=== PATIENT | female | born 1955 | race Hispanic/Latino ===

== ENCOUNTER 2018-09-01 12:46 | Outpatient (CLI) | payer OTHER ==
--- NOTE | 2018-09-01 14:21 | BD ---
DEXA BONE DENSITOMETRY: (Dual energy X-ray Absorptiometry) DATE: 09/01/2018. HISTORY: A 62-year-old white female for age-related postmenopausal osteoporosis screening. Height 62 inches. Weight 174 pounds. Age of menopause 40 years. COMPARISON: None available. FINDINGS: The bone mineral density (BMD) is given in grams per square centimeter (g/cm2): LUMBAR SPINE: BMD(g/cm2) T-score Z-score L1: 0.806 -1.7 -0.3 L2: 0.891 -1.2 0.3 L3: 0.913 -1.6 0.1 L4: 0.892 -1.5 0.2 Total: 0.878 -1.5 0.1 HIP: Femoral neck: 0.771 -0.7 0.7 Total: 0.999 0.5 1.6 FRAX WHO Fracture Risk Assessment Tool: 10 Year Fracture Risk * Major osteoporotic fracture: 6.9%. Hip fracture: 0.3%. Reported Risk Factors: [place](), Neck BMD=0.771), BMI=31.8. * Fracture probability is calculated for an untreated patient. Fracture probability may be lower if the patient has received treatment. IMPRESSION: 1) The mean bone mineral density of the lumbar spine is osteopenic. Fracture risk is increased. 2) The bone mineral density of the femoral neck is normal. Fracture risk is not increased. ROOPA Snyder POS: [facility]
== END 2018-09-01 12:47 | disposition home or self-care (01) ==
LOC: BICMAMMO 12:46
PROVIDERS: ATTEND Family Medicine
DX: Z13.820 Encounter for screening for osteoporosis (principal); M85.88 Other specified disorders of bone density and structure, other site
CPT/HCPCS: 77080